=== PATIENT | male | born 1975 | race Caucasian/White ===

== ENCOUNTER 2019-04-18 12:20 | Observation (INO) ==
[2019-04-18] MEDS ORDERED: Sodium Chloride 0.9% 1,000 ML PRIMARY IV ONE (12:35)
[2019-04-18] MEDS ORDERED: ONDANSETRON 4 MG/2 ML VIAL IVP ONE (12:35)
[2019-04-18] MEDS ORDERED: FAMOTIDINE 20 MG/2 ML VIAL IVP ONE (12:35)
[2019-04-18 12:41] LABS: BASOPHILS # (AUTO) 0.05 10*3/UL; BASOPHILS % (AUTO) 0.5 % (0-1); EOSINOPHILS # (AUTO) 0.18 10*3/UL; EOSINOPHILS % (AUTO) 1.9 % (0-8); Hematocrit [HCT] 51.6 % (42.0-52.0); Hemoglobin [HGB] 17.7 g/dL (14.0-18.0); LYMPHOCYTES # (AUTO) 2.38 10*3/uL; MEAN CORPUSCULAR HGB CONC 34.3 g/dL (33-37); MEAN CORPUSCULAR VOLUME 90.5 FL (80-90); MEAN PLATELET VOLUME 10.5 FL (7.4-12.2); MONOCYTES # (AUTO) 0.79 10*3/UL (0.3-0.8); MONOCYTES % (AUTO) 8.4 % (5-15); NEUTROPHILS # (AUTO) 6.05 10*3/UL; NEUTROPHILS % (AUTO) 63.9 % (50-80)
[2019-04-18 12:45] LABS: PLATELET MORPHOLOGY COMMENT NORMAL MORPHOLOGY (NORM); RBC MORPHOLOGY COMMENT NORMAL MORPHOLOGY (NORM); WBC MORPHOLOGY COMMENT NORMAL MORPHOLOGY (NORM)
[2019-04-18 12:48] LABS: BLOOD UREA NITROGEN 14 mg/dL (7-22); SERUM ALBUMIN 4.6 g/dL (3.5-4.8)
[2019-04-18] MEDS ORDERED: MORPHINE SULFATE 2 MG/1 ML IVP PRN (15:59)
[2019-04-18] MEDS ORDERED: Lactated Ringers 1,000 ML PRIMARY IV ONE (15:59)
[2019-04-18] MEDS ORDERED: ONDANSETRON 4 MG/2 ML VIAL IVP PRN (15:59)
[2019-04-18] MEDS ORDERED: LIDOCAINE W/ SODIUM BICARB 0.5 ML SYR SUBD PRN (15:59)
[2019-04-18] MEDS ORDERED: ACETAMINOPHEN 325 MG TABLET PO PRN (15:59)
[2019-04-18 16:06] LABS: BILIRUBIN,URINE NEGATIVE (NEG); CLARITY,URINE CLEAR (CLEAR); COLOR,URINE YELLOW (Y); GLUCOSE, URINE (UA) NEGATIVE (NEG); OCCULT BLOOD,URINE NEGATIVE (NEG); PROTEIN,URINE NEGATIVE (NEG); URINE SAMPLE TYPE CLEAN CATCH URINE; UROBILINOGEN,URINE 0.2 EU/dL (0.2)
[2019-04-19 04:30] LABS: BASOPHILS # (AUTO) 0.04 10*3/UL; BASOPHILS % (AUTO) 0.4 % (0-1); EOSINOPHILS # (AUTO) 0.25 10*3/UL; EOSINOPHILS % (AUTO) 2.8 % (0-8); Hematocrit [HCT] 46.1 % (42.0-52.0); Hemoglobin [HGB] 15.4 g/dL (14.0-18.0); LYMPHOCYTES # (AUTO) 2.75 10*3/uL; MEAN CORPUSCULAR HGB CONC 33.4 g/dL (33-37); MEAN CORPUSCULAR VOLUME 92.2 FL (80-90); MEAN PLATELET VOLUME 10.8 FL (7.4-12.2); MONOCYTES # (AUTO) 0.76 10*3/UL (0.3-0.8); MONOCYTES % (AUTO) 8.5 % (5-15); NEUTROPHILS # (AUTO) 5.09 10*3/UL; NEUTROPHILS % (AUTO) 57.2 % (50-80)
[2019-04-19 04:40] LABS: BLOOD UREA NITROGEN 14 mg/dL (7-22); BUN/CREATININE RATIO 12.72 (6-20); SERUM ALBUMIN 3.4 g/dL (3.5-4.8)
[2019-04-19 04:45] LABS: PLATELET MORPHOLOGY COMMENT NORMAL MORPHOLOGY (NORM); RBC MORPHOLOGY COMMENT NORMAL MORPHOLOGY (NORM); WBC MORPHOLOGY COMMENT NORMAL MORPHOLOGY (NORM)
[2019-04-19] MEDS ORDERED: Lactated Ringers 1,000 ML PRIMARY IV SCH ×2 (09:15→13:18)
[2019-04-19] MEDS ORDERED: Clindamycin 600mg (Premix) 600 MG/50 ML BAG IV ONE (09:54)
[2019-04-19] MEDS ORDERED: SODIUM CHLORIDE 0.9% IV ONE (09:56)
[2019-04-19] MEDS ORDERED: GENTAMICIN IV ONE (09:56)
[2019-04-19] MEDS ORDERED: MIDAZOLAM 5 MG/1 ML ONE (10:37)
[2019-04-19] MEDS ORDERED: LIDOCAINE MPF 2% - 5 ML (20 MG/1 ML) ONE (10:37)
[2019-04-19] MEDS ORDERED: fentaNYL Inj 250 MCG/5 ML VIAL ONE (10:37)
[2019-04-19] MEDS ORDERED: PROPOFOL 10 MG/1 ML (200 MG/20 ML) VIAL IV ONE (10:37)
[2019-04-19] MEDS ORDERED: ROCURONIUM 10 MG/1 ML - 5 ML VIAL IVP ONE (10:38)
[2019-04-19] MEDS ORDERED: Sodium Chloride 0.9% vial 20 ML ONE (10:50)
[2019-04-19] MEDS ORDERED: BUPIVACAINE 0.25% W/ EPI - 10 ML VIAL ONE (10:50)
[2019-04-19] MEDS ORDERED: Acetaminophen 1000mg Inj 1,000 MG/100 ML VIAL IV ONE (11:05)
[2019-04-19] MEDS ORDERED: DEXMEDETOMIDINE HCL 200 MCG/2 ML VIAL IV ONE (11:06)
[2019-04-19] MEDS ORDERED: Sodium Chloride 0.9% vial 10 ML ONE (11:15)
[2019-04-19] MEDS ORDERED: Iothalamate Meglumine 30 ML VIAL IV ONE (11:16)
[2019-04-19] MEDS ORDERED: KETAMINE 100 MG/1 ML - 5 ML ONE (11:35)
[2019-04-19] MEDS ORDERED: GLYCOPYRROLATE 0.2 MG/1 ML VIAL ONE (12:03)
[2019-04-19] MEDS ORDERED: LIDOCAINE W/ SODIUM BICARB 0.5 ML SYR SUBD PRN (12:52)
[2019-04-19] MEDS ORDERED: HYDROmorphone 2 MG/1 ML IVP PRN (12:52)
[2019-04-19] MEDS ORDERED: MORPHINE SULFATE 2 MG/1 ML IVP PRN (13:18)
[2019-04-19] MEDS ORDERED: ONDANSETRON 4 MG/2 ML VIAL IVP PRN (13:18)
[2019-04-19] MEDS ORDERED: HYDROcodone-APAP 5 MG -325 MG TABLET PO PRN (13:34)
[2019-04-19] MEDS ORDERED: IBUPROFEN 600 MG TABLET PO PRN (13:34)
[2019-04-19 14:10] VITALS: O2SAT 98
[2019-04-19 15:09] VITALS: BP 91/51; RESP 20; TEMP 97.5
== END 2019-04-19 16:56 | disposition home or self-care (01) ==
LOC: ER 12:20 → MED/SURG 12:20 → OPS 04-19 10:57 → MED/SURG 04-19 13:47
PROVIDERS: ADMIT Surgery; ATTEND Surgery
PROC: GELAPAR (ICD-10-PCS; 2019-04-19 11:00)